=== PATIENT | female | born 1960 | race Caucasian/White ===

== ENCOUNTER 2019-02-24 19:41 | Observation (INO) | payer BC ==
[~2019-02-24] VITALS: Ht 177.8 cm; Wt 101.0 kg
[2019-02-24 20:54] LABS: HEMATOCRIT 40.5 % (37.0-47.0); HEMOGLOBIN 12.6 g/dl (12.0-16.0); IMMATURE GRANULOCYTES 0.5 % (0.0-5.0); MEAN CELL VOLUME 82.7 fL CALC (80.0-100.0); MEAN CORPUSCULAR HGB 25.7 pG CALC (26.0-32.0); MEAN CORPUSCULAR HGB CONC 31.1 g/L CALC (32.0-36.0); NEUT# 7.66 thou/uL (2.00-7.15); RED BLOOD COUNT 4.9 mill/uL (4.20-5.60); RED CELL DISTRI WIDTH 17.3 % (11.5-15.5)
[2019-02-24] MEDS ORDERED: SPIRONOLACT25 MG PO (20:57)
[2019-02-24] MEDS ORDERED: GABAPENTIN300 M2 (20:58)
[2019-02-24] MEDS ORDERED: CITALOPRAM20 M1 (20:59)
[2019-02-24] MEDS ORDERED: DOXEPIN HCL10 MG PO (20:59)
[2019-02-24] MEDS ORDERED: B-1250 MCG PO (21:00)
[2019-02-24 21:16] LABS: ALBUMIN 3.9 g/dL (3.2-5.0); BILIRUBIN, TOTAL 0.2 mg/dL (0.0-1.4); CREATININE 1.4 mg/dL (0.5-1.0); POTASSIUM 4.5 mmol/l (3.5-5.1); TOTAL PROTEIN 7.7 g/dL (6.3-8.2)
[2019-02-24 21:20] LABS: D-DIMER 1.27 mg/L (0.19-0.60); INTERNATIONAL NORMALIZED RATIO 0.9 RATIO (0.7-1.3); PROTHROMBIN TIME 9.5 SECONDS (9.0-12.5)
[2019-02-24 22:01] LABS: URINE BILIRUBIN - DIPSTICK NEGATIVE (NEGATIVE); URINE BLOOD DIPSTICK SMALL (NEGATIVE); URINE COLOR YELLOW; URINE GLUCOSE - DIPSTICK NEGATIVE (NEGATIVE); URINE KETONE NEGATIVE (NEGATIVE); URINE PROTEIN - DIPSTICK NEGATIVE (NEG-TRACE); URINE SPECIFIC GRAVITY 1.015; URINE UROBILINOGEN - DIPSTICK 0.2 E.U./dL (0.2)
[2019-02-24 22:03] LABS: URINE BACTERIA MODERATE hpf; URINE LEUK ESTERASE LARGE (NEGATIVE); URINE NITRITE - DIPSTICK POSITIVE (Negative); URINE SQUAMOUS EPITHELIAL CELL FEW EPI/hpf (0-FEW)
[2019-02-25 03:03] VITALS: BP 143/72
[2019-02-25 04:00] LABS: CHOLESTEROL HDL RATIO 5.3 (<4.4 (CALC))
[2019-02-25 08:10] VITALS: BP 140/65
[2019-02-25 10:58] VITALS: BP 146/71
== END 2019-02-25 11:51 | DRG 281 ==
LOC: ED 19:41 → ED-I 20:20 → ED 20:20 → ED-I 23:14 → ED 23:34 → MS2 23:35
PROVIDERS: Family Medicine; ADMIT Internal Medicine; ATTEND Internal Medicine
DX: I21.4 Non-ST elevation (NSTEMI) myocardial infarction (principal); J44.1 Chronic obstructive pulmonary disease with (acute) exacerbation; I10 Essential (primary) hypertension; G47.33 Obstructive sleep apnea (adult) (pediatric); G62.9 Polyneuropathy, unspecified; F17.210 Nicotine dependence, cigarettes, uncomplicated
CPT/HCPCS: G0378; J2060; Q9967

== ENCOUNTER 2019-03-31 16:17 | Emergency (ER) | payer BC ==
[~2019-03-31] VITALS: Ht 177.8 cm; Wt 110.0 kg
[~2019-03-31 16:17] MED LIST: B-1250 MCG PO; CITALOPRAM20 M1; DOXEPIN HCL10 MG PO; GABAPENTIN300 M2; SPIRONOLACT25 MG PO
[2019-03-31 16:41] LABS: HEMATOCRIT 41.9 % (37.0-47.0); HEMOGLOBIN 12.9 g/dl (12.0-16.0); IMMATURE GRANULOCYTES 0.7 % (0.0-5.0); MEAN CELL VOLUME 81.8 fL CALC (80.0-100.0); MEAN CORPUSCULAR HGB 25.2 pG CALC (26.0-32.0); MEAN CORPUSCULAR HGB CONC 30.8 g/L CALC (32.0-36.0); NEUT# 7.45 thou/uL (2.00-7.15); RED BLOOD COUNT 5.12 mill/uL (4.20-5.60)
[2019-03-31 16:56] LABS: INTERNATIONAL NORMALIZED RATIO 0.9 RATIO (0.7-1.3); PROTHROMBIN TIME 9.4 SECONDS (9.0-12.5)
[2019-03-31 17:02] LABS: ALBUMIN 4.3 g/dL (3.2-5.0); BILIRUBIN, TOTAL 0.2 mg/dL (0.0-1.4); CREATININE 1.4 mg/dL (0.5-1.0); POTASSIUM 3.9 mmol/l (3.5-5.1); TOTAL PROTEIN 8.7 g/dL (6.3-8.2)
[2019-03-31 17:38] LABS: URINE BILIRUBIN - DIPSTICK NEGATIVE (NEGATIVE); URINE BLOOD DIPSTICK TRACE-INTACT (NEGATIVE); URINE COLOR YELLOW; URINE GLUCOSE - DIPSTICK NEGATIVE (NEGATIVE); URINE KETONE NEGATIVE (NEGATIVE); URINE NITRITE - DIPSTICK NEGATIVE (Negative); URINE PROTEIN - DIPSTICK NEGATIVE (NEG-TRACE); URINE UROBILINOGEN - DIPSTICK 0.2 E.U./dL (0.2)
[2019-03-31 17:42] LABS: URINE LEUK ESTERASE MODERATE (NEGATIVE)
[2019-03-31 17:44] LABS: URINE BACTERIA MANY hpf; URINE SQUAMOUS EPITHELIAL CELL FEW EPI/hpf (0-FEW); URINE WBC TNTC WBC/hpf (0-5)
[2019-03-31 17:55] LABS: BARBITURATES NEGATIVE (NEGATIVE); COCAINE NEGATIVE (NEGATIVE); METHADONE NEGATIVE (NEGATIVE); OXCYCODONE NEGATIVE (NEGATIVE); TETRAHYDROCANNABIONOL NEGATIVE (NEGATIVE); TRICYLIC ANTIDEPRESSANTS POSITIVE (NEGATIVE)
[2019-03-31] MEDS ORDERED: TYLENOL325 M2 PO (18:38)
[2019-03-31] MEDS ORDERED: NORVASC5 M1 PO (18:38)
[2019-03-31] MEDS ORDERED: ASPIRIN81 MG PO (18:39)
[2019-03-31] MEDS ORDERED: ATORVASTATIN CA20 MG PO (18:39)
[2019-03-31] MEDS ORDERED: DOXEPIN HCL25 MG PO (18:43)
[2019-03-31] MEDS ORDERED: CYCLOBENZAPR10 MG PO (18:43)
[2019-03-31 19:00] VITALS: BP 127/59
[2019-03-31] MEDS ORDERED: METOPROL TAR25 MG PO (19:18)
[2019-03-31] MEDS ORDERED: PERCOCET 5/325M1 TAB PO (19:19)
[2019-03-31] MEDS ORDERED: NITROGLYCERIN0.4 MG PO (19:19)
[2019-03-31] MEDS ORDERED: BRILINTA90 MG PO (19:20)
[2019-03-31] MEDS ORDERED: SPIRONOLACTONE25 MG PO (19:20)
== END 2019-03-31 19:00 | DRG 303 ==
LOC: ED 16:17
DX: I25.110 Atherosclerotic heart disease of native coronary artery with unstable angina pectoris (principal); I10 Essential (primary) hypertension; J44.9 Chronic obstructive pulmonary disease, unspecified; I25.2 Old myocardial infarction; F17.210 Nicotine dependence, cigarettes, uncomplicated; Z95.5 Presence of coronary angioplasty implant and graft
CPT/HCPCS: J1644

== ENCOUNTER 2019-10-06 14:15 | Emergency (ER) | payer BC ==
[~2019-10-06] VITALS: Ht 177.8 cm; Wt 100.0 kg
[~2019-10-06 14:15] MED LIST changes: +ASPIRIN81 MG PO; +ATORVASTATIN CA20 MG PO; +BRILINTA90 MG PO; +CYCLOBENZAPR10 MG PO; +DOXEPIN HCL25 MG PO; +METOPROL TAR25 MG PO; +NITROGLYCERIN0.4 MG PO; +NORVASC5 M1 PO; +PERCOCET 5/325M1 TAB PO; +SPIRONOLACTONE25 MG PO; +TYLENOL325 M2 PO
[2019-10-06] MEDS ORDERED: PANTOPRAZOLE SO40 M1 PO (17:30)
[2019-10-06] MEDS ORDERED: CITALOPRAM40 MG PO (17:30)
[2019-10-06] MEDS ORDERED: FOLIC ACID1 MG PO (17:31)
[2019-10-06] MEDS ORDERED: DOXEPIN HCL50 MG PO (17:31)
[2019-10-06] MEDS ORDERED: NEURONTIN300 MG PO (17:33)
[2019-10-06] MEDS ORDERED: LORTAB 1010 MG PO (18:07)
[2019-10-06 18:25] VITALS: BP 88/64
== END 2019-10-06 18:25 | disposition home or self-care (01) | DRG 563 ==
LOC: ED 14:15
PROC: 2W3RX1Z Immobilization of Left Lower Leg using Splint (ICD-10-PCS; principal; 2019-10-06)
DX: S82.842A Displaced bimalleolar fracture of left lower leg, initial encounter for closed fracture (principal); I10 Essential (primary) hypertension; J44.9 Chronic obstructive pulmonary disease, unspecified; I25.2 Old myocardial infarction; F17.210 Nicotine dependence, cigarettes, uncomplicated; W18.30XA Fall on same level, unspecified, initial encounter; Y92.001 Dining room of unspecified non-institutional (private) residence as the place of occurrence of the external cause

== ENCOUNTER 2020-09-28 08:51 | Inpatient (IN) | payer BC ==
[~2020-09-28] VITALS: Ht 177.8 cm; Wt 93.0 kg
[~2020-09-28 08:51] MED LIST changes: +CITALOPRAM40 MG PO; +DOXEPIN HCL50 MG PO; +FOLIC ACID1 MG PO; +LORTAB 1010 MG PO; +NEURONTIN300 MG PO; +PANTOPRAZOLE SO40 M1 PO
--- NOTE | 2020-09-28 09:10 | NUR ---
TRANSPORTED TO THE ROOM VIA WHEELCHAIR NO ACUTE DISTRESS
[2020-09-28 09:37] LABS: HEMOGLOBIN 14.8 g/dl (12.0-16.0); IMMATURE GRANULOCYTES 0.5 % (0.0-5.0); MEAN CELL VOLUME 84.7 fL CALC (80.0-100.0); MEAN CORPUSCULAR HGB 27.3 pG CALC (26.0-32.0); MEAN CORPUSCULAR HGB CONC 32.2 g/dL CAL (32.0-36.0); NEUT# 7.84 thou/uL (2.00-7.15); RED BLOOD COUNT 5.43 mill/uL (4.20-5.60); RED CELL DISTRI WIDTH 15.2 % (11.5-15.5)
--- NOTE | 2020-09-28 09:37 | NUR ---
ADDITIONAL ASSESSMENTS: DARK ?PRESSURE ULCER ON BRIDGE OF NOSE, REPORTEDLY FROM CPAP HAS BEEN PRESENT FOR MONTHS,EDGES ARE RED UNABLE TO DETERMINE DEPTH DUE TO ESCAR, CHEST PRESSURE IS 7/10 ACCOMPANIES SOB,
[2020-09-28 09:53] LABS: ALBUMIN 3.6 g/dL (3.2-5.0); CREATININE 1.6 mg/dL (0.5-1.0); MAGNESIUM 1.8 mg/dL (1.6-2.3); POTASSIUM 4.1 mmol/l (3.5-5.1); TOTAL PROTEIN 7.7 g/dL (6.3-8.2)
[2020-09-28 09:54] LABS: ACT PARTIAL THROMBO TIME 23.2 SECONDS (20.0-32.5); INTERNATIONAL NORMALIZED RATIO 1.1 RATIO (0.7-1.3); PROTHROMBIN TIME 11.1 SECONDS (9.0-12.5)
[2020-09-28 10:00] LABS: BILIRUBIN, TOTAL 0.3 mg/dL (0.0-1.4)
[2020-09-28 10:17] LABS: URINE BILIRUBIN - DIPSTICK NEGATIVE (NEGATIVE); URINE BLOOD DIPSTICK SMALL (NEGATIVE); URINE COLOR YELLOW; URINE GLUCOSE - DIPSTICK >=1000 mg/dL (NEGATIVE); URINE KETONE NEGATIVE (NEGATIVE); URINE LEUK ESTERASE TRACE (NEGATIVE); URINE PROTEIN - DIPSTICK TRACE mg/dL (NEG-TRACE); URINE SPECIFIC GRAVITY <=1.005; URINE UROBILINOGEN - DIPSTICK 0.2 E.U./dL (0.2)
[2020-09-28 10:19] LABS: URINE EPITHELIAL CELLS MODERATE EPI/hpf (0-FEW); URINE NITRITE - DIPSTICK NEGATIVE (Negative); URINE WBC 0-2 WBC/hpf (0-5)
--- NOTE | 2020-09-28 10:25 | NUR ---
ABLE TO TRANSFER INDEPENDENTLY TO WHEELCHAIR FOR CT SCAN
--- NOTE | 2020-09-28 11:00 | NUR ---
NOTIFIED THE LAB TO DRAW PATIENT, ALERT AT THIS TIME
--- NOTE | 2020-09-28 12:04 | NUR ---
REPORT GIVEN TO JENIFFER AT THIS TIME
--- NOTE | 2020-09-28 12:14 | NUR ---
RECIEVED PATIENT'S REPORT FROM ED NURSE. PATIENT JUST RETURNED FROM CT SCAN. CURRENTLY IN THE BATHROOM.
[2020-09-28 12:26] LABS: CHOLESTEROL HDL RATIO 5.1 (<4.4 (CALC))
--- NOTE | 2020-09-28 12:33 | NUR ---
PATIENT ASSESSED. ACCU-CHEK MACHINE READ CHRICALLLY HIGH. LAB WAS REQUESTED FOR BLOOD SUAGR CHECK.
[2020-09-28 13:00] VITALS: BP 137/67
--- NOTE | 2020-09-28 13:50 | NUR ---
PATIENT CONTINUES HOURLY ACCUCHECKS. PATIENT IS CURRENTLY RESTING IN BED.
[2020-09-28 14:19] VITALS: BP 127/64
[2020-09-28 14:25] LABS: ALBUMIN 3.2 g/dL (3.2-5.0); BILIRUBIN, TOTAL 0.2 mg/dL (0.0-1.4); CREATININE 1.4 mg/dL (0.5-1.0); POTASSIUM 3.3 mmol/l (3.5-5.1); TOTAL PROTEIN 7.2 g/dL (6.3-8.2)
[2020-09-28 15:00] VITALS: BP 114/60
--- NOTE | 2020-09-28 15:00 | NUR ---
PATIENT IS SITTING UP IN BED TALKING ON THE PHONE.
[2020-09-28 15:39] LABS: CREATININE 1.3 mg/dL (0.5-1.0); POTASSIUM 3.3 mmol/l (3.5-5.1)
[2020-09-28 16:00] VITALS: BP 127/70
--- NOTE | 2020-09-28 17:00 | NUR ---
PATIENT IS WATCHING TV AT THIS TIME.
--- NOTE | 2020-09-28 18:12 | NUR ---
PATIENT IS SITTING UP IN BED TALKING TO HER .
[2020-09-28 19:13] LABS: CREATININE 1.3 mg/dL (0.5-1.0); POTASSIUM 3.2 mmol/l (3.5-5.1)
--- NOTE | 2020-09-28 19:30 | NUR ---
REPORT GIVEN BY EASTON. PATIENT IS ALERT AND ORIENTED. RESTING IN BED WATCHING TV. O2 PLACE ON PATIENT DUE TO LOW 02 SAT. RESP EVEN AND UNLABORED. NO S/S OF DISTRESS NOTED. FALL AND SAFTEY PRECAUTIONS IN PLACE. IV INFUSING INSULIN DRIP AND IV FLUIDS PER MD ORDERS. FALL AND SAFTEY PRECAUTIONS IN PLACE. PLAN OF CARE DISCUSSED. PATIENT INFORMED TO CALL WITH ANY QUESTIONS OR CONCERNS.
--- NOTE | 2020-09-28 19:52 | NUR ---
NEW ORDERS GIVEN BY . Q4 ACCU CHECKS DURING THE NIGHT LONG STABLE SWITCH TO ACHS CHECKS DURING THE DAY. STOP INSULIN DRIP. CHANGE FLUIDS FROM 125 ML/HR TO 75 ML/HR. CHEM 7 FOR 2300 AND 0700.
--- NOTE | 2020-09-28 22:33 | NUR ---
PATIENT RESTING WITH EYES CLOSED. RESP EVEN AND UNLABORED. NO S/S OF DISTRESS NOTED. FALL AND SAFTEY PRECAUTIONS IN PLACE.
[2020-09-28 23:24] LABS: ANION GAP 11 (6-22 (CALC)); BUN 21 mg/dL (8-23); BUN/CREATININE RATIO 19 (12-20 (CALC)); CARBON DIOXIDE 19 mmol/l (22-30); CHLORIDE 106 mmol/l (95-108); CREATININE 1.1 mg/dL (0.5-1.0); GFR 50 ML/MIN (>=60 (CALC)); GFR FOR AFR.AMER. > 60 ML/MIN (>=60 (CALC)); POTASSIUM 3.5 mmol/l (3.5-5.1); SODIUM 132 mmol/l (137-146)
[2020-09-29] VITALS (8 sets, daily range): BP systolic 124–186; BP diastolic 80–93
--- NOTE | 2020-09-29 | NUR ---
PATIENT RESTING WITH EYES CLOSED. NO S/S OF DISTRESS NOTED. FALL AND SAFTEY PRECAUTIONS IN PLACE.
--- NOTE | 2020-09-29 02:00 | NUR ---
PATIENT UP TO USE BCS. FALL AND SAFTEY PRECAUTIONS IN PLACE. NO S/S OF DISTRESS NOTED.
--- NOTE | 2020-09-29 05:18 | NUR ---
LAB AT THE BEDSIDE. PATIENT GIVEN FRESH WATER. PATIENT REQUESTED PAIN PILL FOR HEADACHE THIS MORNING.
[2020-09-29 05:54] LABS: MAGNESIUM 1.7 mg/dL (1.6-2.3)
[2020-09-29 05:55] LABS: ANION GAP 10 (6-22 (CALC)); BUN 18 mg/dL (8-23); BUN/CREATININE RATIO 16 (12-20 (CALC)); CARBON DIOXIDE 18 mmol/l (22-30); CHLORIDE 109 mmol/l (95-108); CREATININE 1.1 mg/dL (0.5-1.0); GFR 50 ML/MIN (>=60 (CALC)); GFR FOR AFR.AMER. > 60 ML/MIN (>=60 (CALC)); SODIUM 134 mmol/l (137-146)
--- NOTE | 2020-09-29 07:02 | NUR ---
RECIEVED REPORT FROM NIGHT NURSE. PATIENT CURRENTLY SLEEPING IN BED.
--- NOTE | 2020-09-29 07:29 | NUR ---
PATIENT ASSESSED. A/O, STATES SHE IS NOT HAVING ANY PAIN OR DISCOMFORT AT THIS TIME. SHE IS SITTING UP IN BED WATCHING TV AT THIS TIME. SAFETY MEASURES IN PLACE. CALL LIGHT IN REACH. WILL CONTINUE TO MONITOR.
--- NOTE | 2020-09-29 10:00 | NUR ---
PATIENT SITTING UP IN BED WATCHING TV AT THIS TIME
--- NOTE | 2020-09-29 11:27 | NUR ---
SPOKE TO DR. PURDY, REQUESTED SLIDING SCALE FOR PATIENT, BLOOD SUGARS ARE INCREASING LAST ONE WAS 346. DOCTOR STATED TO GIVE 10 UNITS OF LEVEMIR AND PERFORM ACCUCHECKS ACHS.
--- NOTE | 2020-09-29 12:00 | NUR ---
PATIENT SITTING UP IN BED WATCHING TV WITH LUNCH MEAL INFRONT OF HER.
--- NOTE | 2020-09-29 14:00 | NUR ---
PATIENT IS RESTING IN BED AT THIS TIME.
--- NOTE | 2020-09-29 16:00 | NUR ---
TALKING TO WHO CAME TO VISIT.
--- NOTE | 2020-09-29 18:40 | NUR ---
PATIENT IS SLEEPING IN BED. SAFETY MEASURES IN PLACE. CALL LIGHT IN REACH. WILL CONTINUE TO MONITOR.
--- NOTE | 2020-09-29 20:06 | NUR ---
REPORT GIVEN BY SAVITA. PATIENT IS ALERT AND ORIENTED. RESTING IN BED WATCHING TV. RESP EVEN AND UNLABORED, CPAP FROM HOME TO USE AT NIGHT. NO S/S OF DISTRESS NOTED. PATIENT EDUCATED ON DIET FOR DIABETES. IV INFUSING IV FLUIDS. PLAN OF CARE DISCUSSED. PATIENT INFORMED TO CALL WITH ANY QUESTIONS OR CONCERNS.
--- NOTE | 2020-09-29 22:08 | NUR ---
PATIENT IN BED WATCHING TV. NEW GROWN PROVIDED AND FULL DENNY GARCIA PERFORMED
[2020-09-30] VITALS: BP 125/68
--- NOTE | 2020-09-30 00:28 | NUR ---
PATIENT RESTING WITH EYES CLOSED. RESP EVEN AND UNLABORED. NO S/S OF DISTRESS NOTED. FALL AND SAFTEY PRECAUTIONS IN PLACE.
[2020-09-30 02:00] VITALS: BP 131/89
[2020-09-30 04:00] VITALS: BP 140/92
[2020-09-30 05:35] LABS: HEMATOCRIT 46.4 % (37.0-47.0); HEMOGLOBIN 14.3 g/dl (12.0-16.0); MEAN CELL VOLUME 87.4 fL CALC (80.0-100.0); MEAN CORPUSCULAR HGB 26.9 pG CALC (26.0-32.0); MEAN CORPUSCULAR HGB CONC 30.8 g/dL CAL (32.0-36.0); RED BLOOD COUNT 5.31 mill/uL (4.20-5.60); RED CELL DISTRI WIDTH 15.1 % (11.5-15.5)
[2020-09-30 06:00] VITALS: BP 128/76
[2020-09-30 06:00] LABS: ALKALINE PHOSPHATASE 150 u/l (38-126); ANION GAP 9 (6-22 (CALC)); BILIRUBIN, TOTAL 0.2 mg/dL (0.0-1.4); BUN 12 mg/dL (8-23); BUN/CREATININE RATIO 13 (12-20 (CALC)); CARBON DIOXIDE 21 mmol/l (22-30); CHLORIDE 108 mmol/l (95-108); GFR 56 ML/MIN (>=60 (CALC)); GFR FOR AFR.AMER. > 60 ML/MIN (>=60 (CALC)); LIPASE 674 u/l (23-300); SGOT/AST 22 u/l (9-36); SODIUM 135 mmol/l (137-146); TOTAL PROTEIN 6.4 g/dL (6.3-8.2)
[2020-09-30 08:00] VITALS: BP 133/95
--- NOTE | 2020-09-30 08:00 | NUR ---
PATIENT ALERT AND ORIENTED X 3 PATIENT AWAKE AND SITTING UP IN BED AT THIS TIME. RN ASSESSEMENT DONE SEE INTERVENTIONS. PATIENT ACCU CHECK AT THIS TIME WAS 164. PATIENT GIVNEN EDUCATION ON DIABETIES GIVEN AT THIS TIME AND PATIENT DID VERBALIZE UNDERSTANDING. PATIENT ASKING APPROPIATE QUESTIONS. PATIENT HAS AN UNSTAGABLE ULCER ON BRIDGE OF NOSE AND ESCAR TISSUE NOTED. PHOTOS OBTAIN AT THIS TIME. PATIENT STATED THAT THIS ULCER IS DUE TO HER CPAP MASK SITTING ON BRIDGE OF NOSE. PATIENT STATED THAT SHE NORMALLY PUTS A BANDAIDE ON BRIDGE OF NOSE TO USE CPAP. PATIENT DENIES ANY NEEDS AT THIS TIME AND OR PAIN. SIDERAILS ARE UP CALL LIGHT IS WIHTIN REACH.
[2020-09-30 08:56] LABS: CALCULATED LDLCHOLESTEROL 21 mg/dL (62-129 (CALC)); HDL CHOLESTEROL 33 mg/dL (>=40); TOTAL CHOLESTEROL 133 mg/dl (0-199); TOTAL TRIGLYCERIDES 393 mg/dl (30-149); VLDL CHOLESTROL 79 mg/dl (1-41 (CALC))
--- NOTE | 2020-09-30 09:00 | NUR ---
ASSITED PATIENT TO BATHROOM AT THIS TIME. PATIENT WALKED WITHOUT ISSUES.
[2020-09-30 10:00] VITALS: BP 159/90
--- NOTE | 2020-09-30 10:00 | NUR ---
PATIENT RESTING IN BED AT THIS TIME. PATIENT DENIES ANY NEEDS CURRENTLY SIDERAILS ARE UP X2 CALL LIGHT IS WITHIN REACH.
[2020-09-30] MEDS ORDERED: METFORMIN500 M2 PO (11:04)
--- NOTE | 2020-09-30 11:30 | NUR ---
PATIENT D/C AT THIS TIME. PATEINT VERBALIZES UNDERSTANDING OF D/C INSTRUCTIONS AT THIS TIME.
--- NOTE | 2020-09-30 12:25 | NUR ---
Discharge instructions given. Patient verbalizes understanding of same. Discharged in stable condition via Wheelchair to Home with family. All belongings sent with pt.
== END 2020-09-30 12:05 | disposition home or self-care (01) | DRG 439 ==
LOC: ED 08:51 → ED-I 11:00 → ED 11:17 → ED-I 11:18 → ICU 11:18 → ED-I 18:46 → ICU 09-29 04:17
PROVIDERS: ADMIT Internal Medicine; ATTEND Internal Medicine
DX: K85.80 Other acute pancreatitis without necrosis or infection (principal); E87.1 Hypo-osmolality and hyponatremia; N17.9 Acute kidney failure, unspecified; E11.65 Type 2 diabetes mellitus with hyperglycemia; E78.1 Pure hyperglyceridemia; E86.0 Dehydration; I10 Essential (primary) hypertension; I25.10 Atherosclerotic heart disease of native coronary artery without angina pectoris; J44.9 Chronic obstructive pulmonary disease, unspecified; E11.40 Type 2 diabetes mellitus with diabetic neuropathy, unspecified; M54.9 Dorsalgia, unspecified; G89.29 Other chronic pain; K76.0 Fatty (change of) liver, not elsewhere classified; G47.33 Obstructive sleep apnea (adult) (pediatric); F32.9 Major depressive disorder, single episode, unspecified; F17.210 Nicotine dependence, cigarettes, uncomplicated; I25.2 Old myocardial infarction; Z79.02 Long term (current) use of antithrombotics/antiplatelets; Z95.5 Presence of coronary angioplasty implant and graft; Z20.822 Contact with and (suspected) exposure to COVID-19
CPT/HCPCS: J1650

== ENCOUNTER 2021-10-07 06:57 | Day surgery (SDC) | payer BC ==
[~2021-10-07] VITALS: Ht 177.8 cm; Wt 95.3 kg
[~2021-10-07 06:57] MED LIST changes: +ALPRAZOLAM ER0.5 MG PO; +AMMONIUM LAC12 % EX; +ASPIRIN 81 LOW81 MG PO; +CYCLOBENZAPRINE10 MG PO; +FEROSUL325 MG PO; +FIORICET PO; +GLIPIZIDE ER10 M1 PO; +MECLIZINE25 M1 PO; +METFORMIN500 M2 PO; +MODAFINIL100 MG PO; +TRAMADOL HYDROC50 M1 PO; +TRULICITY0.75 MG/0. SC; +VALIUM2 MG PO
[2021-10-07 09:24] VITALS: BP 120/64
== END 2021-10-07 09:46 | disposition home or self-care (01) | DRG 395 ==
LOC: ENDO 06:57 → ORM 10:15 → ENDO 10:15
PROVIDERS: ATTEND Surgery
PROC: 0DBH8ZX Excision of Cecum, Via Natural or Artificial Opening Endoscopic, Diagnostic (ICD-10-PCS; principal; 2021-10-07)
PROC: 0DBL8ZX Excision of Transverse Colon, Via Natural or Artificial Opening Endoscopic, Diagnostic (ICD-10-PCS; 2021-10-07)
PROC: 0DBP8ZX Excision of Rectum, Via Natural or Artificial Opening Endoscopic, Diagnostic (ICD-10-PCS; 2021-10-07)
PROC: 0DBE8ZX Excision of Large Intestine, Via Natural or Artificial Opening Endoscopic, Diagnostic (ICD-10-PCS; 2021-10-07)
PROC: 0DB98ZX Excision of Duodenum, Via Natural or Artificial Opening Endoscopic, Diagnostic (ICD-10-PCS; 2021-10-07)
PROC: 0DB68ZX Excision of Stomach, Via Natural or Artificial Opening Endoscopic, Diagnostic (ICD-10-PCS; 2021-10-07)
PROC: 0DB48ZX Excision of Esophagogastric Junction, Via Natural or Artificial Opening Endoscopic, Diagnostic (ICD-10-PCS; 2021-10-07)
DX: D12.3 Benign neoplasm of transverse colon (principal); D12.5 Benign neoplasm of sigmoid colon; D12.0 Benign neoplasm of cecum; K62.1 Rectal polyp; K57.30 Diverticulosis of large intestine without perforation or abscess without bleeding; K29.80 Duodenitis without bleeding; K29.50 Unspecified chronic gastritis without bleeding; K21.00 Gastro-esophageal reflux disease with esophagitis, without bleeding; E11.9 Type 2 diabetes mellitus without complications; I10 Essential (primary) hypertension; E78.5 Hyperlipidemia, unspecified; I25.2 Old myocardial infarction; F17.210 Nicotine dependence, cigarettes, uncomplicated; Z79.84 Long term (current) use of oral hypoglycemic drugs

== ENCOUNTER 2022-05-18 08:53 | Emergency (ER) | payer BC ==
[~2022-05-18] VITALS: Ht 177.8 cm; Wt 100.0 kg
[2022-05-18 09:26] LABS: BASO% 0.3 % (0-3); EOS% 3.6 % (0-8); HEMATOCRIT 40.9 % (37.0-47.0); HEMOGLOBIN 12.8 g/dl (12.0-16.0); IMMATURE GRANULOCYTES 0.5 % (0.0-5.0); LYMPH% 16.8 % (15-41); MEAN CELL VOLUME 84.3 fL CALC (80.0-100.0); MEAN CORPUSCULAR HGB 26.4 pG CALC (26.0-32.0); MEAN CORPUSCULAR HGB CONC 31.3 g/dL CAL (32.0-36.0); MONO% 10.2 % (2-13); NEUT# 6.41 thou/uL (2.00-7.15); NEUT% 68.6 % (42-76); RED BLOOD COUNT 4.85 mill/uL (4.20-5.60); RED CELL DISTRI WIDTH 16.1 % (11.5-15.5)
[2022-05-18 09:39] LABS: CREATININE 1.3 mg/dL (0.5-1.0); TOTAL PROTEIN 7.6 g/dL (6.3-8.2)
[2022-05-18 09:53] LABS: ALBUMIN 3.9 g/dL (3.2-5.0); BILIRUBIN, TOTAL 0.1 mg/dL (0.02-1.3)
[2022-05-18] MEDS ORDERED: ZPAK PO (11:14)
[2022-05-18] MEDS ORDERED: AMOX/K CLAV875 M1 PO (11:14)
[2022-05-18] MEDS ORDERED: PREDNISONE50 MG PO (11:14)
[2022-05-18] MEDS ORDERED: ALBUTEROL SUL0.083 % IN (11:14)
[2022-05-18] MEDS ORDERED: NEBULIZER KIT/TUBING PO (11:14)
[2022-05-18 11:25] VITALS: BP 127/65
== END 2022-05-18 11:31 | disposition home or self-care (01) | DRG 153 ==
LOC: ED 08:53
PROVIDERS: Family Medicine
DX: J06.9 Acute upper respiratory infection, unspecified (principal)

== ENCOUNTER 2022-05-23 13:50 | Observation (INO) | payer BC ==
[2022-05-23] VITALS (9 sets, daily range): BP systolic 114–133; BP diastolic 60–76
[~2022-05-23] VITALS: Ht 180.3 cm; Wt 100.0 kg
[~2022-05-23 13:50] MED LIST changes: +ALBUTEROL SUL0.083 % IN; +AMOX/K CLAV875 M1 PO; +NEBULIZER KIT/TUBING PO; +PREDNISONE50 MG PO; +ZPAK PO
--- NOTE | 2022-05-23 14:06 | NUR ---
PATIENT TO ROOM 8 VIA WHEELCHAIR
[2022-05-23 14:21] LABS: BASO% 0.3 % (0-3); IMMATURE GRANULOCYTES 0.6 % (0.0-5.0); LYMPH% 16.4 % (15-41); MEAN CELL VOLUME 83.2 fL CALC (80.0-100.0); MEAN CORPUSCULAR HGB 26.5 pG CALC (26.0-32.0); MEAN CORPUSCULAR HGB CONC 31.8 g/dL CAL (32.0-36.0); MONO% 7.3 % (2-13); NEUT# 11.61 thou/uL (2.00-7.15); NEUT% 73.4 % (42-76); RED BLOOD COUNT 5.29 mill/uL (4.20-5.60); RED CELL DISTRI WIDTH 15.9 % (11.5-15.5)
[2022-05-23 14:31] LABS: CREATININE 1.5 mg/dL (0.5-1.0); POTASSIUM 3.7 mmol/l (3.5-5.1); TOTAL PROTEIN 7.8 g/dL (6.3-8.2)
[2022-05-23 14:33] LABS: BILIRUBIN, TOTAL 0.2 mg/dL (0.02-1.3)
--- NOTE | 2022-05-23 14:43 | NUR ---
Reassessment of patient completed. No distress noted.
[2022-05-23] MEDS ORDERED: PROTONIX40 M2 PO (16:49)
[2022-05-23] MEDS ORDERED: SUCRALFATE1 GM PO (16:50)
[2022-05-23] MEDS ORDERED: FAMOTIDINE20 M1 PO (16:50)
--- NOTE | 2022-05-23 18:10 | NUR ---
PATIENT TO ROOM 290
--- NOTE | 2022-05-23 18:28 | NUR ---
PT ARRIVED TO ME VIA WHEEL CHAIR. PT ALERT ,AMBULATORY. PT IV ABX STILL INFUSING TO RFA 20G . TELE IN PLACE WITH ST RHYTHM PER ER NURSE. PT DENIES ADDITIONAL NEEDS AT THE TIME ALL SAFETY PRECAUTIONS IN PLACE.
--- NOTE | 2022-05-23 20:00 | NUR ---
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
--- NOTE | 2022-05-23 20:07 | NUR ---
pt had a glucose of 371 @2006. Nurse Thi notified @2009.
--- NOTE | 2022-05-23 22:30 | NUR ---
PATIENT WEARS CPAP AT NIGHT, BROUHGHT HOME CPAP MACHINE, CALL RESPIRATORY TO SET UP.
--- NOTE | 2022-05-24 | NUR ---
PATIENT ON CPAP NOT IN DISTRESS, EYES CLOSED, CALL LIGHT IN REACH.
[2022-05-24 04:16] VITALS: BP 140/70
--- NOTE | 2022-05-24 05:10 | NUR ---
PATIENT IN BED EYES CLOSED, NOT INDISTRESS CALL LIGHT IN REACH.
[2022-05-24 06:10] LABS: CREATININE 1.8 mg/dL (0.5-1.0)
[2022-05-24 06:38] VITALS: BP 139/65
[2022-05-24 06:52] LABS: BASO% 0.1 % (0-3); EOS% 0.6 % (0-8); HEMATOCRIT 42.7 % (37.0-47.0); HEMOGLOBIN 13.2 g/dl (12.0-16.0); IMMATURE GRANULOCYTES 0.7 % (0.0-5.0); LYMPH% 14.8 % (15-41); MEAN CELL VOLUME 85.2 fL CALC (80.0-100.0); MEAN CORPUSCULAR HGB 26.3 pG CALC (26.0-32.0); MEAN CORPUSCULAR HGB CONC 30.9 g/dL CAL (32.0-36.0); MONO% 6.9 % (2-13); NEUT# 11.58 thou/uL (2.00-7.15); NEUT% 76.9 % (42-76); RED BLOOD COUNT 5.01 mill/uL (4.20-5.60); RED CELL DISTRI WIDTH 16.4 % (11.5-15.5)
--- NOTE | 2022-05-24 06:59 | NUR ---
PT CLUCOSE WAS 243 @0571
[2022-05-24 07:03] LABS: ALBUMIN 3.7 g/dL (3.2-5.0)
[2022-05-24 07:07] LABS: POTASSIUM 4.7 mmol/l (3.5-5.1)
--- NOTE | 2022-05-24 07:48 | NUR ---
0700 BEDSIDE REPORT RECEIVED FROM LEENA KELLY. PT RESTING IN BED WITH EYES CLOSED. RESP EVEN/UNLABORED. CPAP IN PLACE FROM HOME. NO SIGNS OF DISTRESS NOTED. ALL PERSONAL BELONGINGS WITHIN REACH. SAFETY PRECAUTIONS IN PLACE.
[2022-05-24 11:02] VITALS: BP 143/70
--- NOTE | 2022-05-24 11:23 | NUR ---
PT GLUCOSE WAS 159 @1115
[2022-05-24 20:00] VITALS: BP 149/73
--- NOTE | 2022-05-24 20:00 | NUR ---
RECEIVED REPORT FROM DAY NURSE, PATIENT SITTING IN BED, WATCHING TV, WITH ONGOING IV NS @ 80 CC/HR INFUSING WELL ON RFA G 20, HOOKED ON TELEMETRY SR 81, DENIES AIN AT THIS TIME, CALL LIGHT IN REACH.
--- NOTE | 2022-05-24 21:09 | NUR ---
pt had a glucose @2018 of 409. nurse noe notified @2020.
[2022-05-25] VITALS (7 sets, daily range): BP systolic 139–161; BP diastolic 69–78
--- NOTE | 2022-05-25 | NUR ---
PATIENT RESTING WITH EYES CLOSED BREATHING EVEN UNLABORED NO DISCOMFORTS NOTED AT THIS TIME, CALL LIGHT IN REACH.
--- NOTE | 2022-05-25 04:30 | NUR ---
PATIENT RESTING IN BED, EYES CLOSED, NOT IN DISTRESS, CALL LIGHT IN REACH.
[2022-05-25] MEDS ORDERED: CILOSTAZOL50 MG PO (05:20)
--- NOTE | 2022-05-25 07:38 | NUR ---
Receive report from Romero STERN
--- NOTE | 2022-05-25 08:00 | NUR ---
Alert and oriented patient x3. Resting in bed, stable at the time of this note. Patient does not refer pain at the moment. No distress is observed. Patient is oriented and educated about the nursing plan, fall precautions and medications for today. Patient refers to understanding. Safety and fall precautions in place. Call light within reach.
--- NOTE | 2022-05-25 12:00 | NUR ---
Patient resting in bed. Stable vital signs at the time of this note. Patient refers that he needs respiratory therapy which is administered. Preventive rounds every hour for safety and satisfaction of the patient's needs. Safety and fall precautions in place. Call light within in reach.
--- NOTE | 2022-05-25 16:00 | NUR ---
Patient resting in bed. Stable at this time.
[2022-05-26 05:15] VITALS: BP 146/78
[2022-05-26 05:49] LABS: BASO% 0.1 % (0-3); EOS% 0.3 % (0-8); HEMATOCRIT 39.6 % (37.0-47.0); HEMOGLOBIN 12.6 g/dl (12.0-16.0); IMMATURE GRANULOCYTES 1.1 % (0.0-5.0); LYMPH% 14.2 % (15-41); MEAN CELL VOLUME 84.6 fL CALC (80.0-100.0); MEAN CORPUSCULAR HGB 26.9 pG CALC (26.0-32.0); MEAN CORPUSCULAR HGB CONC 31.8 g/dL CAL (32.0-36.0); MONO% 4.2 % (2-13); NEUT# 9.57 thou/uL (2.00-7.15); NEUT% 80.1 % (42-76); RED BLOOD COUNT 4.68 mill/uL (4.20-5.60); RED CELL DISTRI WIDTH 16.2 % (11.5-15.5)
[2022-05-26 06:18] LABS: ALBUMIN 3.7 g/dL (3.2-5.0); CREATININE 1.2 mg/dL (0.5-1.0); POTASSIUM 4.4 mmol/l (3.5-5.1); TOTAL PROTEIN 7.1 g/dL (6.3-8.2)
[2022-05-26 06:23] LABS: BILIRUBIN, TOTAL 0.2 mg/dL (0.02-1.3)
[2022-05-26 06:39] VITALS: BP 164/79
[2022-05-26 10:24] VITALS: BP 150/78
[2022-05-26] MEDS ORDERED: PREDNISONE10 MG PO (10:54)
[2022-05-26] MEDS ORDERED: VIBRAMYCIN100 M2 PO (10:54)
[2022-05-26] MEDS ORDERED: TAM75CAP PO (10:54)
--- NOTE | 2022-05-26 12:30 | NUR ---
Discharge instructions given. Patient verbalizes understanding of same. Discharged in stable condition via Wheelchair to Home with staff. All belongings sent with pt.
== END 2022-05-26 12:37 | disposition home or self-care (01) | DRG 195 ==
LOC: ED 13:50 → ED-I 16:16 → ED 17:09 → MS2 17:10
PROVIDERS: Family Medicine; Nurse Practitioner Family; ADMIT Internal Medicine; ATTEND Internal Medicine
DX: J10.00 Influenza due to other identified influenza virus with unspecified type of pneumonia (principal); J43.9 Emphysema, unspecified; I10 Essential (primary) hypertension; E11.40 Type 2 diabetes mellitus with diabetic neuropathy, unspecified; I25.10 Atherosclerotic heart disease of native coronary artery without angina pectoris; I25.2 Old myocardial infarction; G47.33 Obstructive sleep apnea (adult) (pediatric); F32.A Depression, unspecified; F17.210 Nicotine dependence, cigarettes, uncomplicated; Z95.5 Presence of coronary angioplasty implant and graft; Z91.041 Radiographic dye allergy status; Z79.84 Long term (current) use of oral hypoglycemic drugs; Z20.822 Contact with and (suspected) exposure to COVID-19
CPT/HCPCS: G0378

== ENCOUNTER 2024-01-24 08:28 | Day surgery (SDC) | payer MEDICARE, OTHER ==
[~2024-01-24] VITALS: Ht 180.3 cm; Wt 96.6 kg
[~2024-01-24 08:28] MED LIST changes: +CILOSTAZOL50 MG PO; +FAMOTIDINE20 M1 PO; +PLAVIX75 MG PO; +PREDNISONE10 MG PO; +PROTONIX40 M2 PO; +RYBELSUS14 MG PO; +SUCRALFATE1 GM PO; +TAM75CAP PO; +TRELEGY ELLIPTA1 AER IN; +VIBRAMYCIN100 M2 PO
[2024-01-24] MEDS ORDERED: FAMOTIDINE 10MG/ML 2ML SDV IV ONE (08:33)
[2024-01-24] MEDS ORDERED: SODIUM CHLORIDE 0.9% 1,000 ML IV ONE (08:33)
[2024-01-24 10:23] VITALS: BP 134/91
[2024-01-24] MEDS ORDERED: GLYCOPYRROLATE 0.2 MG/ML IV ONE (14:36)
[2024-01-24] MEDS ORDERED: LIDOCAINE HCL 2% 2ML SDV IV ONE (14:36)
[2024-01-24] MEDS ORDERED: PROPOFOL 200 MG/20 ML VIAL IV ONE (14:36)
== END 2024-01-24 10:39 | disposition home or self-care (01) ==
LOC: ORM 08:28
PROVIDERS: ATTEND Internal Medicine Gastroenterology
PROC: 0DB48ZX Excision of Esophagogastric Junction, Via Natural or Artificial Opening Endoscopic, Diagnostic (ICD-10-PCS; principal; 2024-01-24)
PROC: 0DB78ZX Excision of Stomach, Pylorus, Via Natural or Artificial Opening Endoscopic, Diagnostic (ICD-10-PCS; 2024-01-24)
DX: K29.70 Gastritis, unspecified, without bleeding (principal); K76.0 Fatty (change of) liver, not elsewhere classified; I25.10 Atherosclerotic heart disease of native coronary artery without angina pectoris; I25.2 Old myocardial infarction; I10 Essential (primary) hypertension; E78.5 Hyperlipidemia, unspecified; J44.9 Chronic obstructive pulmonary disease, unspecified; F17.200 Nicotine dependence, unspecified, uncomplicated; G47.30 Sleep apnea, unspecified; I12.9 Hypertensive chronic kidney disease with stage 1 through stage 4 chronic kidney disease, or unspecified chronic kidney disease; N18.30 Chronic kidney disease, stage 3 unspecified; Z95.5 Presence of coronary angioplasty implant and graft; Z86.74 Personal history of sudden cardiac arrest